=== PATIENT | female | born 1980 | race American Indian/Alaskan Native ===

== ENCOUNTER 2018-07-23 12:35 | Emergency (ER) | payer OTHER ==
[2018-07-23 12:35] VITALS: BMI 31.6
[2018-07-23 13:01] VITALS: RESP 18
--- NOTE | 2018-07-23 13:56 | C.PDOC ---
History Of Present Illness 38 y/o female presents to ED for medical evaluation of flu like symptoms. She states that her two children are ill ( one with an ear infection; other with URI) and is concerned she may have contracted a similar virus. She admits to itchy throat, PND, nausea, one loose BM, and general malaise. She denies headache, fever, chills, vomiting, chest pain, abdominal pain, and seasonal allergies. She is not on any meds currently. HPI: Influenza Time Seen by Provider: 07/23/18 13:50 Chief Complaint: Flu-like Symptoms History Per: Patient Exam Limitations: no limitations Have you had recent travel within the past 21 days to any of the following countries: [place], [place], [place] or [place]?: No Onset/Duration Of Symptoms: Days, Gradual Symptoms include: denies: fever, headache, bodyaches, sore throat, cough, nasal congestion, vomiting, diarrhea, syncope, chest pain, difficulty breathing, seizure, rash, blurry vision, other Sick Contacts (Context): Family Member(s) Past Medical History Reviewed: Historical Data, Nursing Documentation, Vital Signs Vital Signs: Last Vital Signs Temp 98.2 F 07/23/18 12:58 Pulse 81 07/23/18 12:58 Resp 18 07/23/18 12:58 BP 112/75 07/23/18 12:58 Pulse Ox 99 07/23/18 12:58 - Medical History PMH: Denies: Chronic Kidney Disease Family History: States: Unknown Family Hx - Social History Hx Alcohol Use: Yes Hx Substance Use: No - Immunization History Hx Tetanus Toxoid Vaccination: No Hx Influenza Vaccination: No Hx Pneumococcal Vaccination: No Review Of Systems Constitutional: Negative for: Fever, Chills, Sweats ENT: Positive for: Other (PND, itchy throat). Negative for: Ear Pain, Nose Discharge, Throat Pain Cardiovascular: Negative for: Chest Pain Respiratory: Negative for: Shortness of Breath Gastrointestinal: Positive for: Nausea. Negative for: Vomiting, Abdominal Pain, Diarrhea Musculoskeletal: Negative for: Neck Pain Skin: Negative for: Rash Neurological: Negative for: Headache, Dizziness Physical Exam - Physical Exam Appears: Well, Non-toxic, No Acute Distress Skin: Normal Color, Warm, Dry Head: Atraumatic, Normacephalic, No Tenderness Eye(s): bilateral: Normal Inspection, PERRL Ear(s): Bilateral: Normal (TM intact) Nose: Flaring Oral Mucosa: Moist Throat: No Erythema Neck: Normal ROM, Supple Cardiovascular: Rhythm Regular Respiratory: Normal Breath Sounds, No Wheezing Gastrointestinal/Abdominal: Bowel Sounds, Soft, No Tenderness Back: No CVA Tenderness Neurological/Psych: Oriented x3, Normal Speech, Normal Cognition, Normal Sensation - ECG O2 Sat by Pulse Oximetry: 99 Disposition Counseled Patient/Family Regarding: Studies Performed, Diagnosis, Need For Followup, Rx Given - Disposition Referrals: Glen Mathur MD [Staff Provider] - Disposition: HOME/ ROUTINE Disposition Time: 14:46 Condition: GOOD Additional Instructions: DENNY SNELL, thank you for letting us take care of you today. Your provider was Chayito Roper MD/Katy Johnson PA-C and you were treated for HEADACHE/CONGESTION. The emergency medical care you received today was directed at your acute symptoms. If you were prescribed any medication, please fill it and take as directed. It may take several days for your symptoms to resolve. Return to the Emergency Department if your symptoms worsen, do not improve, or if you have any other problems. Please contact your doctor or call one of the physicians/clinics you have been referred to that are listed on the Patient Visit Information form that is included in your discharge packet. Bring any paperwork you were given at discharge with you along with any medications you are taking to your follow up visit. Our treatment cannot replace ongoing medical care by a primary care provider outside of the emergency department. Thank you for allowing the [facility] team to be part of your care today. Instructions: Viral Upper Respiratory Infection, Adult (DC) Forms: [employer] ([place]), Work Excuse - Clinical Impression Clinical Impression: Viral syndrome - PA / SOFTWARE QUALITY MANAGER / Resident Statement MD/DO has reviewed & agrees with the documentation as recorded.
[2018-07-23 14:15] LABS: SQUAMOUS EPITHIAL 11 /hpf (0-5); URINE BACTERIA RARE (<OCC); URINE BILIRUBIN NEGATIVE (NEGATIVE); URINE BLOOD 1+ (NEGATIVE); URINE CLARITY Hazy (Clear); URINE COLOR Yellow (YELLOW); URINE GLUCOSE (UA) NORMAL (Normal); URINE LEUKOCYTE ESTERASE 1+ Leu/uL (Negative); URINE PROTEIN 1+ mg/dL (NEGATIVE)
[2018-07-23 14:16] LABS: HCG,QUALITATIVE URINE NEGATIVE (NEGATIVE)
[2018-07-23 15:08] VITALS: BP 118/82; PULSE 82; TEMP 98.1
[2018-07-23 15:19] VITALS: O2SAT 99
== END 2018-07-23 15:07 | disposition home or self-care (01) ==
LOC: C.ER 12:35
DX: B34.9 Viral infection, unspecified (principal)

== ENCOUNTER 2018-11-01 13:45 | Emergency (ER) | payer OTHER ==
[2018-11-01 13:45] VITALS: BMI 31.6
[2018-11-01 14:00] VITALS: TEMP 99.1
--- NOTE | 2018-11-01 14:33 | RAD ---
PROCEDURE: Right Ankle Radiographs. Three views. HISTORY: s/p fall COMPARISON: None available. FINDINGS: BONES: No acute displaced fracture. JOINTS: No dislocation. SOFT TISSUES: Soft tissue swelling. No evidence of radiopaque foreign body. OTHER FINDINGS: None. IMPRESSION: Soft tissue swelling. No acute displaced fracture, dislocation, or significant joint effusion identified. If symptoms persist or if there is clinical concern, x-ray follow-up in 7-10 days should be considered.
--- NOTE | 2018-11-01 14:35 | RAD ---
PROCEDURE: Right Knee Radiographs. Three views. HISTORY: s/p fall COMPARISON: None available. FINDINGS: BONES: No acute displaced fracture. JOINTS: No dislocation. JOINT EFFUSION: No significant joint effusion. OTHER FINDINGS: None. IMPRESSION: No acute displaced fracture, dislocation, or significant joint effusion identified. If symptoms persist, or if there is continued clinical concern, x-ray follow-up in 7-10 days should be considered.
--- NOTE | 2018-11-01 15:19 | C.PDOC ---
History Of Present Illness Patient is a 38 year old female who presents to the ED c/o right ankle and right knee pain s/p fall this morning. Patient states that she tripped over daughter's toy and fell injuring her right ankle and knee. She denies any head injury or LOC. She presents to the ED c/o pain when bearing weight and is limping. She rates her pain as a 7/10 and denies taking any medications for her symptoms. She denies any headache, weakness, dizziness, numbness, or tingling. Chief Complaint (Nursing): Lower Extremity Problem/Injury History Per: Patient History/Exam Limitations: no limitations Onset/Duration Of Symptoms: Hrs Current Symptoms Are (Timing): Still Present Pain Scale Rating Of: 7 Recent travel outside of the [place]: No Additional History Per: Patient Past Medical History Reviewed: Historical Data, Nursing Documentation, Vital Signs Vital Signs: Last Vital Signs Temp 99.1 F 11/01/18 13:57 Pulse 80 11/01/18 13:57 Resp 20 11/01/18 13:57 BP 112/82 11/01/18 13:57 Pulse Ox 100 11/01/18 13:57 Primary Care Provider: Glen Mathur - Medical History PMH: No Chronic Diseases Denies: Chronic Kidney Disease Surgical History: No Surg Hx Family History: States: Unknown Family Hx - Social History Hx Alcohol Use: Yes Hx Substance Use: No - Immunization History Hx Tetanus Toxoid Vaccination: Yes Hx Influenza Vaccination: No Hx Pneumococcal Vaccination: No Review Of Systems Constitutional: Positive for: Weakness Cardiovascular: Negative for: Chest Pain Respiratory: Negative for: Shortness of Breath Musculoskeletal: Positive for: Leg Pain (right knee), Foot Pain (right ankle). Negative for: Neck Pain, Hand Pain Neurological: Negative for: Numbness, Headache, Dizziness, Other (tingling) Physical Exam - Physical Exam Appears: Non-toxic, No Acute Distress Skin: Normal Color, Warm, Dry Head: Atraumatic, Normacephalic Eye(s): bilateral: Normal Inspection Neck: Normal ROM, Supple Chest: Symmetrical Cardiovascular: Rhythm Regular Respiratory: Normal Breath Sounds, No Accessory Muscle Use Extremity: Normal ROM (limited rom due to pain of right ankle. right knee full ROM, no edema, ecchymosis, or erythema), Tenderness (slight edema laterally to right ankle tender to touch ), No Calf Tenderness, Capillary Refill (less than 2 seconds), No Deformity, Swelling (slight- rink ankle) Extremity: Bilateral: No Pedal Edema Pulses: Left Dorsalis Pedis: Normal, Right Dorsalis Pedis: Normal Neurological/Psych: Oriented x3, Normal Speech, Normal Cognition, Normal Sensation Gait: Unsteady (with limp) ED Course And Treatment O2 Sat by Pulse Oximetry: 100 (on RA) Pulse Ox Interpretation: Normal - Other Rad Xray Rt Knee X-Ray: Viewed By Me, Read By Radiologist Interpretation: PROCEDURE: Right Knee Radiographs. Three views. HISTORY: s/p fall. COMPARISON: None available. FINDINGS: BONES: No acute displaced fracture. JOINTS: No dislocation. JOINT EFFUSION: No significant joint effusion. OTHER FINDINGS: None. IMPRESSION: No acute displaced fracture, dislocation, or significant joint effusion identified. If symptoms persist, or if there is continued clinical concern, x-ray follow-up in 7-10 days should be considered. Xray Rt Ankle X-Ray: Viewed By Me, Read By Radiologist Interpretation: PROCEDURE: Right Ankle Radiographs. Three views. HISTORY: s/p fall. COMPARISON: None available. FINDINGS: BONES: No acute displaced fracture. JOINTS: No dislocation. SOFT TISSUES: Soft tissue swelling. No evidence of radiopaque foreign body. OTHER FINDINGS: None. IMPRESSION: Soft tissue swelling. No acute displaced fracture, dislocation, or significant joint effusion identified. If symptoms persist or if there is clinical concern, x-ray follow-up in 7-10 days should be considered. Medical Decision Making Medical Decision Making: Plan: Tylenol 650mg PO Xray Rt Knee and Rt Ankle ordered and reviewed with patient patient advised to take Naproxen BID Rest, Ice, Compression, and Elevation Follow up with PMD for possible MRI Return to the ED if symptoms worsen Patient verbalizes understanding and is in agreement with plan. Patient is stable for discharge. Disposition Counseled Patient/Family Regarding: Studies Performed, Diagnosis, Need For Followup, Rx Given - Disposition Referrals: Glen Mathur MD [Staff Provider] - Santi Jaffe MD [Staff Provider] - Disposition: HOME/ ROUTINE Disposition Time: 15:20 Condition: STABLE Additional Instructions: Continue meds as instructed Rest, Ice, Compression, and Elevation Follow up with PMD for possible MRI Return to the ED if symptoms worsen Prescriptions: Naproxen [Naprosyn] 500 mg PO BID #30 tablet Instructions: Ankle Sprain (DC), Knee Sprain (DC) Forms: [facility] ([place]), Work Excuse - Clinical Impression Clinical Impression: Right knee pain, Right ankle pain, Sprain and strain - PA / AUTOMOTIVE SALES SPECIALIST / Resident Statement MD/DO has examined the patient and agrees with the treatment plan. - Scribe Statement The provider has reviewed the documentation as recorded by the Vereniceibcristofer Lewis All medical record entries made by the Vereniceibcristofer were at my direction and personally dictated by me. I have reviewed the chart and agree that the record accurately reflects my personal performance of the history, physical exam, medical decision making, and the department course for this patient. I have also personally directed, reviewed, and agree with the discharge instructions and disposition.
[2018-11-01 15:35] VITALS: BP 132/88; PULSE 76; RESP 18
[2018-11-01 16:09] VITALS: O2SAT 100
== END 2018-11-01 15:34 | disposition home or self-care (01) ==
LOC: C.ER 13:45
DX: S93.401A Sprain of unspecified ligament of right ankle, initial encounter (principal); S96.911A Strain of unspecified muscle and tendon at ankle and foot level, right foot, initial encounter; W01.0XXA Fall on same level from slipping, tripping and stumbling without subsequent striking against object, initial encounter; M25.571 Pain in right ankle and joints of right foot; M25.561 Pain in right knee